=== PATIENT | male | born 1985 | race Hispanic/Latino ===

== ENCOUNTER 2021-12-06 03:00 | Emergency (ER) | payer SELFPAY ==
[~2021-12-06] VITALS: Ht 172.7 cm; Wt 77.0 kg
[~2021-12-06 03:00] MED LIST: AZITHROMYCIN250 MG PO; AZULFIDINE500 M1 PO
[2021-12-06] MEDS ORDERED: BACITRACIN3.5 GM TOP (03:24)
[2021-12-06 04:00] VITALS: BP 126/94
== END 2021-12-06 04:00 | disposition home or self-care (01) | DRG 605 ==
LOC: ED 03:00
DX: S00.01XA Abrasion of scalp, initial encounter (principal); F17.200 Nicotine dependence, unspecified, uncomplicated; W26.0XXA Contact with knife, initial encounter; Y93.89 Activity, other specified; Y92.009 Unspecified place in unspecified non-institutional (private) residence as the place of occurrence of the external cause

== ENCOUNTER 2022-08-06 19:16 | Emergency (ER) | payer SELFPAY ==
[~2022-08-06] VITALS: Ht 172.7 cm; Wt 80.0 kg
[~2022-08-06 19:16] MED LIST changes: +BACITRACIN3.5 GM TOP
[2022-08-06] MEDS ORDERED: AMOX/K CLAV875 M1 PO (22:04)
[2022-08-06 22:56] VITALS: BP 97/71
== END 2022-08-06 23:15 | disposition home or self-care (01) | DRG 605 ==
LOC: ED 19:16
DX: S30.1XXA Contusion of abdominal wall, initial encounter (principal); W17.89XA Other fall from one level to another, initial encounter; T21.02XA Burn of unspecified degree of abdominal wall, initial encounter; S30.811A Abrasion of abdominal wall, initial encounter